=== PATIENT | male | born 1945 | race Caucasian/White ===

== ENCOUNTER 2022-11-22 08:04 | Day surgery (SDC) | payer MEDICARE, BC, OTHER ==
[~2022-11-22] VITALS: Ht 171 cm; Wt 83.6 kg
[2022-11-22] VITALS (7 sets, daily range): BP systolic 115–146; BP diastolic 73–87
[~2022-11-22 08:04] MED LIST: ASPI81CH PO; ASPI81EC PO; ATOR40TA PO; BETA.05TC TOP; DIPH50 PO; EPIN.3I IM; ERGO400 PO; HYDCHL25 PO; LISI5 PO; NIAC500 PO; NITROGLYCERIN0.4 M1 SL; ROSU10TA PO; ROSU5 PO
--- NOTE | 2022-11-22 11:23 | NUR ---
REPORT FROM LAURENCE GAY RN. PT ABLE TO REPOSITION SELF IN BED. TOLERATING PO FLUIDS AND FOOD, REPORTING NO NAUSEA. PT REQUESTING TO GO HOME.
--- NOTE | 2022-11-22 11:34 | NUR ---
PT HAS ONE INCISION SITE ON ABD THAT IS COVERED WITH A CLEAR OPSITE AND 2X2 GAUZE THAT IS CDI. NO DRAINAGE, SWELLING, REDNESS NOTED.
--- NOTE | 2022-11-22 11:42 | NUR ---
Patient up to Ambulate independently. Gait steady. Discharge instructions reviewed with patient. Patient verbalizes understanding. Copy given to patient to take home. Patient States Post-Procedure ride home has been arranged. Discharged via wheelchair to private car for ride home. ALL BELONGINGS RETURNED TO PATIENT THAT HE CAME TO [facility] WITH, TO INCLUDE ONE PAIR OF EYE GLASSES.
== END 2022-11-22 22:54 | disposition home or self-care (01) ==
LOC: ORSCMMR 08:04 → ORD 09:30 → ORSCMMR 22:54
PROVIDERS: Surgery
PROC: 0WUF0JZ Supplement Abdominal Wall with Synthetic Substitute, Open Approach (ICD-10-PCS; principal; 2022-11-22 09:30)
DX: K42.9 Umbilical hernia without obstruction or gangrene (principal); Z87.891 Personal history of nicotine dependence; E78.00 Pure hypercholesterolemia, unspecified; Z79.899 Other long term (current) drug therapy
CPT/HCPCS: A9270; C1781; J0690; J1100; J1885; J2250; J2405; J2704; J3010; J7120

== ENCOUNTER → 2023-09-18 | Outpatient (CLI) | payer MEDICARE, BC, OTHER ==
[2023-09-18 10:32] LABS: Source, Urine Clean Catch
[2023-09-18 13:05] LABS: Appearance, Urine Clear (Clear); Bilirubin, Urine Neg (Neg); Blood, Urine Neg (Neg); Color, Urine Yellow (P-Yellow); Glucose Qualitative, Urine Neg (Neg); Ketones, Urine 1+ (Neg); Leukocyte Esterase, Urine 3+ (Neg); Nitrite, Urine Neg (Neg); Protein, Urine Neg (Neg); Specific Gravity, Urine 1.015 (1.003-1.022); Urobilinogen, Urine NORM (Normal)
[2023-09-18 13:40] LABS: Bacteria Few /hpf; Squamous Epithelial Cells Rare /hpf (Few)
== END ==
LOC: LAB SHORT 09:40 → LAB 09:40
PROVIDERS: Nurse Practitioner Family
DX: E78.2 Mixed hyperlipidemia (principal)
CPT/HCPCS: 81001; 87086

== ENCOUNTER → 2024-09-29 | Outpatient (CLI) | payer MEDICARE, BC, OTHER ==
[2024-09-29 13:03] LABS: Microalbumin, Random Urine 16.6 mg/L (0.000-20.000)
[2024-09-29 13:10] LABS: Creatinine, Urine Random 72.2 mg/dL (27.00-270.00); Microalb/Creat Ratio UR, Rand 22.992 mg/g (0.000-30.000)
== END | disposition home or self-care (01) ==
LOC: LAB 10:35 → LAB SHORT 10:35
PROVIDERS: Nurse Practitioner Family
DX: I10 Essential (primary) hypertension (principal)
CPT/HCPCS: 82043; 82570

== ENCOUNTER 2024-11-11 15:15 | Observation (INO) | payer MEDICARE, BC, OTHER ==
[~2024-11-11] VITALS: Ht 177.8 cm; Wt 83.0 kg
[2024-11-11 16:22] LABS: Alanine Aminotransfer (ALT/SGP 28.0 U/L (12-78); Albumin, Blood 3.7 g/dL (3.4-5.0); Albumin/Globulin Ratio 1.0 (0.8-1.8); Anion Gap 9.0 mmol/L (3-11); Aspartate Aminotrans (AST/SGOT 28.0 U/L (12-37); Bilirubin, Total 0.8 mg/dL (0.1-1.0); Blood Urea Nitrogen 11.0 mg/dL (8-24); CO2, Blood 25.0 mmol/L (21-32); Calcium, Blood 9.2 mg/dL (8.5-10.1); Chloride, Blood 106.0 mmol/L (98-108); Creatinine, Blood 0.7 mg/dL (0.60-1.20); Globulin, Blood 3.6 g/dL (2.2-4.0); Glucose, Blood 95.0 mg/dL (70-99); Potassium, Blood 4.3 mmol/L (3.5-5.5); Sodium, Blood 136.0 mmol/L (136-145); Total Protein, Blood 7.3 g/dL (6.4-8.2)
[2024-11-11 19:54] LABS: BASOPHILS ABSOLUTE AUTO 0.06 K/mm3 (0.00-0.23); BASOPHILS PERCENT AUTO 1 % (0-2); EOSINOPHILS ABSOLUTE AUTO 0.22 K/mm3 (0.00-0.68); EOSINOPHILS PERCENT AUTO 2 % (0-6); Hematocrit 49.0 % (37.0-53.0); Hemoglobin 16.9 g/dL (13.5-17.5); IMMATURE GRAN ABSOLUTE AUTO 0.03 K/mm3 (0.00-0.10); IMMATURE GRAN PERCENT AUTO 0 % (0-1); LYMPHOCYTES ABSOLUTE AUTO 2.54 K/mm3 (0.84-5.20); LYMPHOCYTES PERCENT AUTO 26 % (21-46); MONOCYTES ABSOLUTE AUTO 1.09 K/mm3 (0.16-1.47); MONOCYTES PERCENT AUTO 11 % (4-13); Mean Corpuscular HGB Conc 34.5 g/dL (31.5-36.5); Mean Corpuscular Volume 98 fL (80-100); NEUTROPHILS ABSOLUTE AUTO 5.73 K/mm3 (1.96-9.15); NEUTROPHILS PERCENT AUTO 59 % (41-73); NRBC ABSOLUTE 0.00 K/mm3 (0.00-0.02); NRBC Auto 0.0 /100 WBC (0.0-0.2); Platelet Count 197 K/mm3 (150-400); RDW Coefficient Variation 13.5 % (11.7-14.2); RDW Standard Deviation 48.6 fL (35.1-46.3)
[2024-11-11] MEDS ORDERED: NS 1,000 ML IV SCH (21:45)
[2024-11-11] MEDS ORDERED: Ondansetron HCl 2 MG / ML 2ML Vial IV PRN (21:45)
[2024-11-11] MEDS ORDERED: Prinivil10 MG PO (23:31)
[2024-11-12 01:26] VITALS: BP 150/84
--- NOTE | 2024-11-12 04:25 | NUR ---
SHIFT SUMMARY 79 YR M ADMITTED TO MEDICAL FLOOR THIS SHIFT FOR SX OF TIA. HE HAS BEEN ASYMPTOMATIC SINCE HIS ARRIVAL TO THE ER. PLAN FOR MRI IN A.M. PT IS A&O X 4 AND INDEPENDANT IN THE ROOM. HE IS RESTING COMFORTABLY AT THIS TIME. ABLE TO MAKE HIS NEEDS KNOWN. NPO. BED IN LOW POSITION AND CALL LIGHT IN REACH.
[2024-11-12 04:28] VITALS: BP 118/72
[2024-11-12 07:00] LABS: CHOL/HDL RATIO 3.3; Cholesterol 180 mg/dL (50-200); HDL Cholesterol 55 mg/dL (>39); LDL/HDL RATIO 1.6; Low Density Lipoprotein Chol 87 mg/dL (0-110); Triglycerides 188 mg/dL (30-160); Very Low Density Lipoprot Chol 37 mg/dL (6-32)
[2024-11-12 07:30] VITALS: BP 141/89
[2024-11-12] MEDS ORDERED: Enoxaparin 40 MG/0.4 ML SYR SC SCH (09:00)
[2024-11-12 11:43] VITALS: BP 138/84
[2024-11-12] MEDS ORDERED: ASPI81CH PO (12:57)
[2024-11-12] MEDS ORDERED: CLOP75 PO (12:57)
== END 2024-11-12 13:30 | disposition home or self-care (01) ==
LOC: ER 15:15 → ERHOLD 15:16 → MEDS 15:16
PROVIDERS: Nurse Practitioner Acute Care; Student in an Organized Health Care Education/Training Program; ADMIT Internal Medicine
DX: G45.9 Transient cerebral ischemic attack, unspecified (principal); I10 Essential (primary) hypertension; F10.10 Alcohol abuse, uncomplicated; E78.00 Pure hypercholesterolemia, unspecified; R01.1 Cardiac murmur, unspecified; Z91.038 Other insect allergy status; Z79.899 Other long term (current) drug therapy
CPT/HCPCS: 36415; 70450; 70496; 70498; 70551; 80053; 80061; 83036; 84484; 85025; 93005; 93010; 93306; 96372; 99285-25; A9270; G0378; J1650; J7030; Q9967